=== PATIENT | female | born 1980 | race Native Hawaiian/Other Pacific Islander ===

== ENCOUNTER 2022-05-07 08:24 | Outpatient (CLI) | payer OTHER | END 2022-05-07 19:12 | disposition home or self-care (01) | LOC: MAMMO 08:24 | PROVIDERS: ATTEND Obstetrics & Gynecology | DX: Z12.31 Encounter for screening mammogram for malignant neoplasm of breast (principal) ==

== ENCOUNTER 2022-05-08 11:25 | Outpatient (CLI) | payer OTHER ==
[2022-05-08 12:11] LABS: PLATELET COUNT 521 K/uL (152-353)
[2022-05-08 12:19] LABS: POTASSIUM 4.5 mmol/L (3.6-5.2)
== END 2022-05-08 22:28 | disposition home or self-care (01) ==
LOC: LABW 11:25
PROVIDERS: ATTEND Registered Nurse
DX: R79.89 Other specified abnormal findings of blood chemistry (principal); D64.89 Other specified anemias; E87.5 Hyperkalemia
CPT/HCPCS: 36415; 80053; 85027

== ENCOUNTER 2022-05-22 11:33 | Outpatient (CLI) | payer OTHER ==
[2022-05-22 12:18] LABS: PLATELET COUNT 582 K/uL (152-353)
[2022-05-22 12:56] LABS: POTASSIUM 4.1 mmol/L (3.6-5.2)
== END 2022-05-22 17:00 | disposition home or self-care (01) ==
LOC: LAB 11:33
PROVIDERS: ATTEND Internal Medicine Hematology & Oncology
DX: M25.50 Pain in unspecified joint (principal); D64.89 Other specified anemias; D75.839 Thrombocytosis, unspecified
CPT/HCPCS: 36415; 80053; 81241; 82607; 82728; 82746; 83540; 83550; 85027; 86038

== ENCOUNTER 2022-05-28 13:51 | Outpatient (CLI) | payer OTHER ==
[~2022-05-28] VITALS: Ht 162.6 cm; Wt 130.2 kg
[2022-05-28 13:57] VITALS: BP 147/79; TEMP 98.3
== END 2022-05-28 19:42 | disposition home or self-care (01) ==
LOC: INF 13:51
PROVIDERS: ATTEND Internal Medicine
DX: D64.89 Other specified anemias (principal); D75.839 Thrombocytosis, unspecified
CPT/HCPCS: 96365; Q0138

== ENCOUNTER 2022-06-05 08:57 | Outpatient (CLI) | payer OTHER ==
[~2022-06-05] VITALS: Ht 162.6 cm; Wt 130.2 kg
[2022-06-05 09:02] VITALS: BP 158/81; TEMP 98.6
[2022-06-05 10:17] VITALS: BP 139/75; TEMP 98.4
== END 2022-06-05 20:53 | disposition home or self-care (01) ==
LOC: INF 08:57
PROVIDERS: ATTEND Internal Medicine
DX: D64.9 Anemia, unspecified (principal); D75.839 Thrombocytosis, unspecified
CPT/HCPCS: 96365; Q0138

== ENCOUNTER 2022-07-10 15:38 | Outpatient (CLI) | payer OTHER ==
[2022-07-10 15:48] LABS: PLATELET COUNT 428 K/uL (152-353)
[2022-07-10 17:31] LABS: POTASSIUM 3.6 mmol/L (3.6-5.2)
== END 2022-07-10 17:30 | disposition home or self-care (01) ==
LOC: LABW 15:38
PROVIDERS: ATTEND Internal Medicine Hematology & Oncology
DX: D64.9 Anemia, unspecified (principal); D75.839 Thrombocytosis, unspecified
CPT/HCPCS: 36415; 80053; 82728; 83540; 83550; 85027

== ENCOUNTER 2022-07-30 10:35 | Outpatient (CLI) | payer OTHER ==
[2022-07-30 11:12] LABS: PLATELET COUNT 437 K/uL (152-353)
[2022-07-30 11:20] LABS: POTASSIUM 4.2 mmol/L (3.6-5.2)
== END 2022-07-30 20:38 | disposition home or self-care (01) ==
LOC: LABW 10:35 → RAD 10:35 → LABW 20:38
PROVIDERS: ATTEND Nurse Practitioner Family
DX: E55.9 Vitamin D deficiency, unspecified (principal); E56.8 Deficiency of other vitamins; M06.4 Inflammatory polyarthropathy; R76.0 Raised antibody titer
CPT/HCPCS: 36415; 80053; 82306; 85027; 85652; 86140

== ENCOUNTER 2022-09-15 10:58 | Outpatient (CLI) | payer OTHER | END 2022-09-15 19:27 | disposition home or self-care (01) | LOC: RAD 10:58 | PROVIDERS: ATTEND Nurse Practitioner Family | DX: E55.9 Vitamin D deficiency, unspecified (principal); E56.8 Deficiency of other vitamins; M06.4 Inflammatory polyarthropathy; R76.0 Raised antibody titer ==

== ENCOUNTER 2022-10-23 11:18 | Outpatient (CLI) | payer OTHER ==
[2022-10-23 11:40] LABS: PLATELET COUNT 446 K/uL (152-353)
[2022-10-23 12:04] LABS: POTASSIUM 3.9 mmol/L (3.6-5.2)
== END 2022-10-23 18:58 | disposition home or self-care (01) ==
LOC: LABW 11:18
PROVIDERS: ATTEND Internal Medicine Hematology & Oncology
DX: D64.9 Anemia, unspecified (principal); D75.839 Thrombocytosis, unspecified
CPT/HCPCS: 36415; 80053; 82728; 83540; 83550; 85027